=== PATIENT | male | born 1950 | race Caucasian/White ===

== ENCOUNTER 2019-05-10 09:48 | Emergency (ER) | payer MEDICARE, BC ==
[~2019-05-10] VITALS: Ht 180.3 cm; Wt 67.0 kg
[~2019-05-10 09:48] MED LIST: ADVIL200 MG PO; CARTIA XT180 MG/24 PO; PEPCID20 MG PO
[2019-05-10 10:38] LABS: HEMATOCRIT 49.9 % (39.0-50.0); HEMOGLOBIN 16.9 g/dl (14.0-18.0); IMMATURE GRANULOCYTES 0.4 % (0.0-5.0); MEAN CELL VOLUME 94.5 fL CALC (80.0-100.0); MEAN CORPUSCULAR HGB CONC 33.9 g/L CALC (32.0-36.0); NEUT# 5.8 thou/uL (1.82-7.42); RED BLOOD COUNT 5.28 mill/uL (4.70-6.10); RED CELL DISTRI WIDTH 12.9 % (11.5-15.5)
[2019-05-10 11:38] LABS: ALBUMIN 4.2 g/dL (3.2-5.0); ALKALINE PHOSPHATASE 86 u/l (38-126); ANION GAP 14 (6-22 (CALC)); BUN 26 mg/dL (8-23); BUN/CREATININE RATIO 23 (12-20 (CALC)); CARBON DIOXIDE 25 mmol/l (22-30); CHLORIDE 102 mmol/l (95-108); CREATININE 1.1 mg/dL (0.7-1.3); GFR > 60 ML/MIN (>=60 (CALC)); GFR FOR AFR.AMER. > 60 ML/MIN (>=60 (CALC)); POTASSIUM 4.1 mmol/l (3.5-5.1); SGOT/AST 24 u/l (19-48); SODIUM 138 mmol/l (137-146); TOTAL PROTEIN 7.2 g/dL (6.3-8.2)
[2019-05-10 13:39] VITALS: BP 144/95
== END 2019-05-10 14:23 | disposition short-term general hospital (02) ==
LOC: ED 09:48
PROVIDERS: Emergency Medicine
DX: I67.82 Cerebral ischemia (principal); I48.92 Unspecified atrial flutter; I10 Essential (primary) hypertension; F17.210 Nicotine dependence, cigarettes, uncomplicated
CPT/HCPCS: Q9967

== ENCOUNTER 2023-02-01 06:27 | Day surgery (SDC) | payer MEDICARE, BC ==
[~2023-02-01] VITALS: Ht 180.3 cm; Wt 65.8 kg
[~2023-02-01 06:27] MED LIST changes: +ARICEPT PO; +ASPIRINCHW 81MG PO; +ATORVASTATIN CA40 MG PO; +CARTIA XT180 MG PO; -CARTIA XT180 MG/24 PO; +XARELTO20 MG PO
[2023-02-01 09:42] VITALS: BP 128/88
== END 2023-02-01 09:15 | disposition home or self-care (01) ==
LOC: ORM 06:27
PROVIDERS: ATTEND Urology
PROC: 0VB03ZX Excision of Prostate, Percutaneous Approach, Diagnostic (ICD-10-PCS; principal; 2023-02-01)
DX: C61 Malignant neoplasm of prostate (principal); N40.1 Benign prostatic hyperplasia with lower urinary tract symptoms; N13.8 Other obstructive and reflux uropathy; I10 Essential (primary) hypertension; I48.91 Unspecified atrial fibrillation; E78.5 Hyperlipidemia, unspecified; Z79.82 Long term (current) use of aspirin; Z79.01 Long term (current) use of anticoagulants; Z87.891 Personal history of nicotine dependence
CPT/HCPCS: J1956